=== PATIENT | male | born 1990 | race African-American/Black ===

== ENCOUNTER 2019-02-16 14:38 | Emergency (ER) | payer OTHER ==
[~2019-02-16] VITALS: Ht 180.3 cm; Wt 113.6 kg
[2019-02-16 15:54] VITALS: BP 137/73; PULSE 67; TEMP 97.9
== END 2019-02-16 16:00 | disposition home or self-care (01) ==
LOC: COL.ER 14:38
DX: S80.11XA Contusion of right lower leg, initial encounter (principal); V47.5XXA Car driver injured in collision with fixed or stationary object in traffic accident, initial encounter; Y99.0 Civilian activity done for income or pay

== ENCOUNTER 2020-03-01 17:57 | Emergency (ER) | payer OTHER ==
[~2020-03-01] VITALS: Ht 182.9 cm; Wt 113.6 kg
[2020-03-01 18:09] VITALS: BP 128/78; TEMP 97.9
[2020-03-01 18:44] VITALS: PULSE 74
== END 2020-03-01 18:56 | disposition home or self-care (01) ==
LOC: COL.ER 17:57
DX: S01.81XA Laceration without foreign body of other part of head, initial encounter (principal); R40.2412 Glasgow coma scale score 13-15, at arrival to emergency department; Z23 Encounter for immunization; W25.XXXA Contact with sharp glass, initial encounter; Y92.59 Other trade areas as the place of occurrence of the external cause

== ENCOUNTER → 2020-09-05 | Outpatient (CLI) | payer BC | LOC: ZLAB.KSTAT 15:36 | DX: J06.9 Acute upper respiratory infection, unspecified (principal); Z20.828 Contact with and (suspected) exposure to other viral communicable diseases ==

== ENCOUNTER 2022-07-25 19:28 | Emergency (ER) | payer OTHER ==
[~2022-07-25] VITALS: Ht 180.3 cm; Wt 115.9 kg
[2022-07-25 19:38] VITALS: TEMP 98.6
[2022-07-25 21:50] VITALS: BP 122/75; PULSE 63
== END 2022-07-25 21:50 | disposition home or self-care (01) ==
LOC: COL.ER 19:28
DX: G43.909 Migraine, unspecified, not intractable, without status migrainosus (principal)
CPT/HCPCS: J0780; J1200; J1885

== ENCOUNTER → 2024-08-30 | Outpatient (CLI) | payer OTHER | LOC: COL.RAD 15:27 | DX: Z01.89 Encounter for other specified special examinations (principal); M25.511 Pain in right shoulder ==